=== PATIENT | female | born 1975 | race Caucasian/White ===

== ENCOUNTER 2017-03-05 19:12 | Emergency (ER) | payer MEDICAID ==
[~2017-03-05] VITALS: Ht 160 cm; Wt 83.2 kg
[~2017-03-05 19:12] MED LIST: IBUP-2213 PO
[2017-03-05 20:01] VITALS: BP 120/61
--- NOTE | 2017-03-05 20:11 | NUR ---
PT TAKEN TO CT FROM THE LOBBY
--- NOTE | 2017-03-05 20:23 | NUR ---
Pt placed in bed [address]
--- NOTE | 2017-03-05 20:29 | NUR ---
42/F c/o headache x1 week with worsening pain today accompanied by blurry vision. Pt also c/o dizziness and pain to back of neck with bending forward. Pt denies fever or chills. Denies dizziness and blurry vision at this time. Pt describes DURAN as pressure, numbness to right side of face and arm, 7/10, constant. Pt is awake and alert x4, clear speech. 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 No facial droop noted. at bedside. Warm blanket provided. All needs addressed at this time. Placed in position of comfort. VSS.
--- NOTE | 2017-03-05 21:23 | NUR ---
Patient being evaluated by Dr. Pang at bedside.
[2017-03-05 21:51] VITALS: BP 119/62
--- NOTE | 2017-03-05 21:52 | NUR ---
Patient discharged with v/s stable. Written and verbal after care instructions given and explained. Patient alert, oriented and verbalized understanding of instructions. Ambulatory with steady gait. All questions addressed prior to discharge. ID band removed. Patient advised to follow up with PMD. Rx of fioricet [id number] tab q8hrs/prn, norco 7.5mg-325 q6hrs/prn given. Patient educated on indication of medication including possible reaction and side effects. Opportunity to ask questions provided and answered.
== END 2017-03-05 21:52 | disposition home or self-care (01) ==
LOC: MED 19:12
DX: G44.209 Tension-type headache, unspecified, not intractable (principal); Z79.899 Other long term (current) drug therapy
CPT/HCPCS: 70450; 99284

== ENCOUNTER 2021-04-14 17:18 | Emergency (ER) | payer MEDICAID ==
[~2021-04-14] VITALS: Ht 154.9 cm; Wt 86.6 kg
[2021-04-14 17:28] VITALS: BP 150/100
--- NOTE | 2021-04-14 17:31 | NUR ---
PT TO WAIT IN LOBBY.
--- NOTE | 2021-04-14 17:44 | NUR ---
LAVERN OG WITH PT IN [facility] FOR FURTHER EVALUATION.
--- NOTE | 2021-04-14 17:48 | NUR ---
46 Y/O FEMALE C/O HEADACHE 03/10 X2DAYS. PT STATES PAIN RADIATES TO RIGHT SIDE OF HEAD. DENIES FEVER/CHILLS. DENIES N/V. DENIES TRAUMA/INJURY. PT STATES +SENSITIVITY TO LIGHT, +VISION CHANGES. DENIES PMH NKA
[2021-04-14] MEDS ORDERED: NACL 0.9% 1,000 ML IV ONE (17:50)
[2021-04-14] MEDS ORDERED: diphenhydrAMINE 50 MG/ML VIAL IVP ONE (17:50)
--- NOTE | 2021-04-14 18:00 | NUR ---
PT AMBULATED TO BED 09 WITH STEADY/EVEN GAIT.
[2021-04-14 18:08] LABS: BASOPHILS # (AUTO) 0.1 K/uL (0.00-0.22); BASOPHILS % (AUTO) 0.8 % (0.0-2.0); EOSINOPHILS # (AUTO) 0.4 K/uL (0-0.4); EOSINOPHILS % (AUTO) 4.1 % (0.0-4.0); HEMATOCRIT 40.3 % (36-48); HEMOGLOBIN 13.6 g/dL (12.0-16.0); LYMPHOCYTES # (AUTO) 2.9 K/uL (2.5-16.5); LYMPHOCYTES % (AUTO) 32.6 % (20.5-51.1); MEAN CORPUSCULAR HEMOGLOBIN 31 pg (27-31); MEAN CORPUSCULAR HGB CONC 34 g/dL (33-37); MEAN CORPUSCULAR VOLUME 93.1 fL (80-94); MONOCYTES # (AUTO) 0.5 K/uL (0.8-1.0); MONOCYTES % (AUTO) 5.4 % (1.7-9.3); NEUTROPHILS % (AUTO) 57.1 % (42.2-75.2); PLATELET COUNT (AUTO) 318 K/uL (140-450); RED BLOOD CELL COUNT(AUTO) 4.33 MIL/uL (4.20-5.40); RED CELL DISTRIBUTION WIDTH 13.3 % (11.6-13.7); WHITE BLOOD COUNT (AUTO) 8.7 K/uL (4.8-10.8)
[2021-04-14 18:18] LABS: ANION GAP 14.6 (8-16); CARBON DIOXIDE 26.2 mmol/L (21-32); CREATININE 0.7 mg/dL (0.6-1.3); POTASSIUM 3.8 mmol/L (3.5-5.1); TOTAL BILIRUBIN 0.2 mg/dL (0.0-1.0)
[2021-04-14] MEDS ORDERED: KETOROLAC 30 MG/ML VIAL ONE (18:55)
[2021-04-14] MEDS ORDERED: KETOROLAC 30 MG/ML VIAL IVP ONE (18:55)
--- NOTE | 2021-04-14 18:59 | NUR ---
Patient states minor relief to pain; 01/07. States feeling sleepy. LAVERN Luis made aware and Toradol order to be placed.
--- NOTE | 2021-04-14 19:16 | NUR ---
Report and transfer of care endorsed to Rhonda, RN
--- NOTE | 2021-04-14 19:18 | NUR ---
Received report from Cezar BAUTISTA for continuity of care.
--- NOTE | 2021-04-14 19:35 | NUR ---
Patient appears to be resting comfortably in bed-- semi fowlers with eyes open. Vital Signs within normal limits. Respirations even and unlabored. No signs of distress noted. Patient complains of pain 5/10 DURAN and sleepiness. Safety measures are in place, and will continue to monitor patient. AAOx4. GCS 15. Patent IV when 10cc NS was flushed.
--- NOTE | 2021-04-14 19:35 | NUR ---
Note undone in EDM - 04/14/21 at 1953 by [email or web address] Patient appears to be resting comfortably in bed-- semi fowlers with eyes open and on the phone. Vital Signs within normal limits. Respirations even and unlabored. No signs of respiratory distress. Patient complains of discomfort and difficulty swallowing. 4/10 throat pain when swallong. Safety measures are in place, and will continue to monitor patient. AAOx4. GCS 15. Patent IV when 10cc NS was flushed.
[2021-04-14] MEDS ORDERED: ACET-9500 PO (19:58)
--- NOTE | 2021-04-14 20:08 | NUR ---
Patient discharged with v/s stable. Written and verbal after care instructions given and explained. Patient alert, oriented and verbalized understanding of instructions. Ambulatory with steady gait. All questions addressed prior to discharge. ID band removed. Patient advised to follow up with PMD. Rx of EXCEDRIN MIGRAINE given. Patient educated on indication of medication including possible reaction and side effects. Opportunity to ask questions provided and answered.
== END 2021-04-14 20:08 | disposition home or self-care (01) ==
LOC: MED 17:18
DX: G43.909 Migraine, unspecified, not intractable, without status migrainosus (principal); Z79.899 Other long term (current) drug therapy; Z79.1 Long term (current) use of non-steroidal anti-inflammatories (NSAID); Z79.82 Long term (current) use of aspirin
CPT/HCPCS: 36415; 80053; 85025; 96361; 96374; 96375; 99284; J1200; J1885; J7030

== ENCOUNTER 2021-07-13 15:53 | Emergency (ER) | payer MEDICAID ==
[~2021-07-13] VITALS: Ht 154.9 cm; Wt 85.3 kg
[~2021-07-13 15:53] MED LIST changes: +ACET-9500 PO
[2021-07-13 16:18] VITALS: BP 130/88
[2021-07-13 17:23] LABS: BASOPHILS % (AUTO) 0.4 % (0.0-2.0); EOSINOPHILS # (AUTO) 0.2 K/uL (0-0.4); EOSINOPHILS % (AUTO) 1.9 % (0.0-4.0); HEMATOCRIT 44.5 % (36-48); HEMOGLOBIN 15.4 g/dL (12.0-16.0); LYMPHOCYTES # (AUTO) 2.1 K/uL (2.5-16.5); MEAN CORPUSCULAR HEMOGLOBIN 32 pg (27-31); MEAN CORPUSCULAR HGB CONC 35 g/dL (33-37); MEAN CORPUSCULAR VOLUME 91.7 fL (80-94); MONOCYTES # (AUTO) 0.7 K/uL (0.8-1.0); MONOCYTES % (AUTO) 5.9 % (1.7-9.3); NEUTROPHILS # (AUTO) 9.4 K/uL (1.8-7.7); NEUTROPHILS % (AUTO) 74.8 % (42.2-75.2); PLATELET COUNT (AUTO) 306 K/uL (140-450); RED BLOOD CELL COUNT(AUTO) 4.85 MIL/uL (4.20-5.40); WHITE BLOOD COUNT (AUTO) 12.6 K/uL (4.8-10.8)
[2021-07-13 17:44] LABS: ALBUMIN 4.1 g/dL (3.4-5.0); ANION GAP 14.8 (8-16); CARBON DIOXIDE 24.8 mmol/L (21-32); CREATININE 0.8 mg/dL (0.6-1.3); POTASSIUM 3.6 mmol/L (3.5-5.1); TOTAL BILIRUBIN 0.7 mg/dL (0.0-1.0)
[2021-07-13 17:51] LABS: FREE T4 (FREE THYROXINE) 0.91 ng/dL (0.76-1.46); THYROID STIMULATING HORMONE 3.77 uIU/mL (0.34-3.74)
[2021-07-13] MEDS ORDERED: NAPR-54 PO (20:52)
[2021-07-13 22:50] VITALS: BP 132/86
--- NOTE | 2021-07-13 22:50 | NUR ---
Patient discharged with v/s stable. Written and verbal after care instructions given and explained. Patient verbalized understanding. Ambulatory with steady gait. All questions addressed prior to discharge. Advised to follow up with PMD.
== END 2021-07-13 22:50 | disposition home or self-care (01) ==
LOC: MED 15:53
DX: R07.89 Other chest pain (principal); R20.0 Anesthesia of skin; R11.0 Nausea; Z79.899 Other long term (current) drug therapy
CPT/HCPCS: 36415; 71045; 80053; 83880; 84439; 84443; 84484; 85025; 85379; 93005; 99285

== ENCOUNTER 2022-03-11 09:34 | Emergency (ER) | payer MEDICAID ==
[~2022-03-11] VITALS: Ht 154.9 cm; Wt 83.9 kg
[~2022-03-11 09:34] MED LIST changes: +ACET-8001 PO; -ACET-9500 PO; +NAPR-54 PO
--- NOTE | 2022-03-11 09:44 | NUR ---
AMBULATED WITH PERSONAL CANE TO BED 9
[2022-03-11] MEDS ORDERED: NACL 0.9% 1,000 ML IV ONE (10:05)
[2022-03-11] MEDS ORDERED: KETOROLAC 30 MG/ML VIAL IVP ONE (10:05)
[2022-03-11 10:38] LABS: BASOPHILS # (AUTO) 0.1 K/uL (0.00-0.22); BASOPHILS % (AUTO) 0.8 % (0.0-2.0); EOSINOPHILS # (AUTO) 0.2 K/uL (0-0.4); HEMATOCRIT 38.8 % (36-48); LYMPHOCYTES # (AUTO) 2.6 K/uL (2.5-16.5); LYMPHOCYTES % (AUTO) 37.6 % (20.5-51.1); MEAN CORPUSCULAR HEMOGLOBIN 31 pg (27-31); MEAN CORPUSCULAR HGB CONC 33 g/dL (33-37); MEAN CORPUSCULAR VOLUME 92.4 fL (80-94); MONOCYTES # (AUTO) 0.4 K/uL (0.8-1.0); MONOCYTES % (AUTO) 5.7 % (1.7-9.3); NEUTROPHILS # (AUTO) 3.7 K/uL (1.8-7.7); NEUTROPHILS % (AUTO) 52.9 % (42.2-75.2); PLATELET COUNT (AUTO) 341 K/uL (140-450); RED CELL DISTRIBUTION WIDTH 14.6 % (11.6-13.7); WHITE BLOOD COUNT (AUTO) 6.9 K/uL (4.8-10.8)
--- NOTE | 2022-03-11 10:58 | NUR ---
PT C/O RIGHT LEG PAIN DENIES TRAUMA OR INJURY. ALSO C/O 9/ HEADACHE. IV INSERTED TO LEFT HAND #20GUAGE MEDICATED PER ORDER.
[2022-03-11 11:22] LABS: ALBUMIN 3.2 g/dL (3.4-5.0); ANION GAP 13.5 (8-16); CARBON DIOXIDE 25.2 mmol/L (21-32); CREATININE 0.7 mg/dL (0.6-1.3); POTASSIUM 3.7 mmol/L (3.5-5.1); TOTAL BILIRUBIN 0.4 mg/dL (0.0-1.0)
[2022-03-11] MEDS ORDERED: METH-1681 PO (11:44)
[2022-03-11] MEDS ORDERED: LID5T TP (11:44)
[2022-03-11] MEDS ORDERED: IBUP-2213 PO (11:44)
--- NOTE | 2022-03-11 13:00 | NUR ---
IV removed, catheter intact and site benign. Applied folded 4x4 gauze and tape to stop bleeding.
[2022-03-11 13:21] VITALS: BP 128/80
== END 2022-03-11 13:22 | disposition home or self-care (01) ==
LOC: MED 09:34
DX: S86.911A Strain of unspecified muscle(s) and tendon(s) at lower leg level, right leg, initial encounter (principal); X58.XXXA Exposure to other specified factors, initial encounter; Y93.89 Activity, other specified; Y92.89 Other specified places as the place of occurrence of the external cause; Y99.8 Other external cause status
CPT/HCPCS: 36415; 80053; 84702; 85025; 85651; 86140; 93971; 96361; 96374; 99284; J1885; Q0092; J7030

== ENCOUNTER 2022-06-06 11:32 | Emergency (ER) | payer MEDICAID ==
[~2022-06-06] VITALS: Ht 162.6 cm; Wt 79.4 kg
[~2022-06-06 11:32] MED LIST changes: +LID5T TP; +METH-1681 PO
[2022-06-06 11:47] VITALS: BP 124/73
--- NOTE | 2022-06-06 12:10 | NUR ---
PT TO XRAY VIA W/C WITH TECH
[2022-06-06] MEDS ORDERED: MIRABULK PO (13:05)
[2022-06-06] MEDS ORDERED: MAGN296S48 PO (13:05)
[2022-06-06 13:08] VITALS: BP 124/73
== END 2022-06-06 13:08 | disposition home or self-care (01) ==
LOC: MED 11:32
DX: K59.00 Constipation, unspecified (principal)
CPT/HCPCS: 74018; 99283

== ENCOUNTER 2022-07-06 15:00 | Emergency (ER) | payer MEDICAID ==
[~2022-07-06] VITALS: Ht 160 cm; Wt 74.4 kg
[~2022-07-06 15:00] MED LIST changes: +MAGN296S48 PO; +MIRABULK PO
--- NOTE | 2022-07-06 15:09 | NUR ---
CALLED TO TRIAGE NO REPLY
--- NOTE | 2022-07-06 15:17 | NUR ---
CALLED TO TRIAGE NO RESPONSE
--- NOTE | 2022-07-06 15:24 | NUR ---
PATIENT LEFT WITHOUT BEING SEEN BY DR. BOLDEN. NO FURTHER CARE PROVIDED FOR PATIENT.
--- NOTE | 2022-07-06 16:39 | NUR ---
PT FOUND IN LOBBY
[2022-07-06 16:45] VITALS: BP 128/56
--- NOTE | 2022-07-06 17:00 | NUR ---
47 Y/O FEMALE BIB SELF C/O ABD PAIN X3DAYS, DENIES NVD, PER PT SHE WAS DX WITH HEMORRHOIDS AND IS STATING THAT IT HURTS WHEN SHE TRIES TO DEFECATES NKA PMH: HEMORRHOIDS
--- NOTE | 2022-07-06 17:34 | NUR ---
Female Management Professor accompanied female patient for Rectal Exam.
[2022-07-06] MEDS ORDERED: ACET-5629 PO (17:46)
[2022-07-06] MEDS ORDERED: DOCU-299 PO (17:46)
[2022-07-06] MEDS ORDERED: HYDR30CR8 RC (17:46)
--- NOTE | 2022-07-06 18:02 | NUR ---
Patient discharged with v/s stable. Written and verbal after care instructions ABOUT CONSTIPATION AND HEMORRHOIDS given and explained. Patient alert, oriented and verbalized understanding of instructions. Ambulatory with steady gait. All questions addressed prior to discharge. ID band removed. Patient advised to follow up with PMD. Rx of PERCOCET 5-325, COLACE, PROCTOZONE-HC given. Patient educated on indication of medication including possible reaction and side effects. Opportunity to ask questions provided and answered.
== END 2022-07-06 18:02 | disposition home or self-care (01) ==
LOC: MED 15:00
DX: K64.4 Residual hemorrhoidal skin tags (principal)
CPT/HCPCS: 74018; 99283